=== PATIENT | female | born 1985 | race Hispanic/Latino ===

== ENCOUNTER 2017-04-30 13:05 | Emergency (ER) | payer SELFPAY ==
[2017-04-30 13:44] VITALS: BP 122/80
--- NOTE | 2017-04-30 17:17 | Emergency Department Report ---
Entered by ESE BUTLER, acting as scribe for CHRISTIN PIEDRA NP. ED ENT HPI - General Chief complaint: Dental/Oral Stated complaint: Toothache Time Seen by Provider: 04/30/17 16:30 Source: patient Mode of arrival: Ambulatory Limitations: No Limitations - History of Present Illness Initial comments: 31 y/o female presents with tooth pain secondary to tooth breaking and her filling falling out that occurred 3 days ago. Sx include diaphoresis during sleeping but pt denies swelling, fever, EDEN, chills, SOB, chest pain or EDEN. She notes having an appt with her dentist in [place] on 05/07/17 and that he is aware of the problem. No additional Sx MD complaint: tooth pain -: days(s) (3) Location: tooth # (4) Severity: mild Severity scale (0 -10): 4 Quality: aching Consistency: constant Improves with: none Worsens with: none Context- Dental: tooth knocked out (tooth number 4) Associated Symptoms: toothache. denies: fever, cough, gum swelling, pain with swallowing, sore throat, hearing loss, discharge from ear - Related Data Previous Rx's Medication Instructions Recorded Last Taken Type Acetaminophen/Codeine [Tylenol 1 tab PO Q6H PRN #12 tab 04/30/17 Unknown Rx /Codeine # 3 tab] Clindamycin [Clindamycin CAP] 300 mg PO Q8H #30 cap 04/30/17 Unknown Rx Ibuprofen [Motrin 800 MG tab] 800 mg PO Q8HR PRN #30 tablet 04/30/17 Unknown Rx Allergies Allergy/AdvReac Type Severity Reaction Status Date / Time chlordiazepoxide HCl Allergy Unknown Verified 04/30/17 13:40 [From Librium] Penicillins Allergy Shortness Verified 04/30/17 13:40 of Breath tramadol HCl [From Ultram] Allergy Unknown Verified 04/30/17 13:40 ED Dental HPI - General Chief complaint: Dental/Oral Stated complaint: Toothache Source: patient Mode of arrival: Ambulatory Limitations: No Limitations - Related Data Previous Rx's Medication Instructions Recorded Last Taken Type Acetaminophen/Codeine [Tylenol 1 tab PO Q6H PRN #12 tab 04/30/17 Unknown Rx /Codeine # 3 tab] Clindamycin [Clindamycin CAP] 300 mg PO Q8H #30 cap 04/30/17 Unknown Rx Ibuprofen [Motrin 800 MG tab] 800 mg PO Q8HR PRN #30 tablet 04/30/17 Unknown Rx Allergies Allergy/AdvReac Type Severity Reaction Status Date / Time chlordiazepoxide HCl Allergy Unknown Verified 04/30/17 13:40 [From Librium] Penicillins Allergy Shortness Verified 04/30/17 13:40 of Breath tramadol HCl [From Ultram] Allergy Unknown Verified 04/30/17 13:40 ED Review of Systems Comment: All other systems reviewed and negative Constitutional: denies: chills, fever ENT: dental pain (tooth number 4 cracked and filling came out). denies: throat pain ED Past Medical Hx - Past Medical History Previous Medical History?: Yes Hx Psychiatric Treatment: Yes (panic attacks, PTSD) Additional medical history: toothache and dental caries - Surgical History Past Surgical History?: Yes Additional Surgical History: hydronitis, wisdom tooth removed, pilonidal cyst removed - Social History Smoking Status: Current Every Day Smoker Substance Use Type: Prescribed - Medications Home Medications: Home Medications Medication Instructions Recorded Confirmed Last Taken Type Acetaminophen/Codeine [Tylenol 1 tab PO Q6H PRN #12 tab 04/30/17 Unknown Rx /Codeine # 3 tab] Clindamycin [Clindamycin CAP] 300 mg PO Q8H #30 cap 04/30/17 Unknown Rx Ibuprofen [Motrin 800 MG tab] 800 mg PO Q8HR PRN #30 tablet 04/30/17 Unknown Rx ED Physical Exam - General Limitations: No Limitations General appearance: alert, in no apparent distress - Head Head exam: Present: atraumatic, normocephalic - Eye Eye exam: Present: normal appearance, PERRL, EOMI Pupils: Present: normal accommodation - ENT ENT exam: Present: normal exam, normal orophraynx, mucous membranes moist, TM's normal bilaterally, normal external ear exam, other (tooth number 4 broke and filling came out, no pulp exposure, no gingival enlargement, no mucosal edema) - Neck Neck exam: Present: normal inspection, full ROM. Absent: tenderness, meningismus, lymphadenopathy, thyromegaly - Respiratory Respiratory exam: Present: normal lung sounds bilaterally. Absent: respiratory distress, wheezes, rales, rhonchi, stridor - Cardiovascular Cardiovascular Exam: Present: regular rate, normal rhythm, normal heart sounds. Absent: systolic murmur, diastolic murmur, rubs, gallop - GI/Abdominal GI/Abdominal exam: Present: soft, normal bowel sounds. Absent: distended, tenderness, guarding, rebound, rigid - Extremities Exam Extremities exam: Present: normal inspection, full ROM, normal capillary refill. Absent: tenderness, pedal edema, joint swelling, calf tenderness - Back Exam Back exam: Present: normal inspection, full ROM. Absent: tenderness, CVA tenderness (R), CVA tenderness (L), paraspinal tenderness, vertebral tenderness - Neurological Exam Neurological exam: Present: alert, oriented X3, CN II-XII intact, reflexes normal. Absent: motor sensory deficit - Psychiatric Psychiatric exam: Present: normal affect, normal mood - Skin Skin exam: Present: warm, dry, intact, normal color. Absent: rash ED Course Vital Signs 04/30/17 13:40 Temperature 98.9 F Pulse Rate 94 H Respiratory 20 Rate Blood Pressure 122/80 O2 Sat by Pulse 98 Oximetry ED Medical Decision Making - Medical Decision Making During the course of ED, all other systems are unremarkable except for documentation in HPI. Patient was sent home with prescriptions for Tylenol #3, Ibuprofen and Clindamycin, instructed to follow up with selective referral given at discharge. She verbalized understanding - Differential Diagnosis Toothache, Dental Caries, Dental Abscess ED Disposition Clinical Impression: Pain, dental Disposition: DISCHARGED TO HOME OR SELFCARE Is pt being admited?: No Does the pt Need Aspirin: No Condition: Stable Instructions: Toothache (ED) Additional Instructions: Take medication as directed. No drinking, driving or operating heavy machinery. Follow up with dentistry RENEE Prescriptions: Acetaminophen/Codeine [Tylenol /Codeine # 3 tab] 1 tab PO Q6H PRN #12 tab PRN Reason: Pain , Severe (7-10) Clindamycin [Clindamycin CAP] 300 mg PO Q8H #30 cap Ibuprofen [Motrin 800 MG tab] 800 mg PO Q8HR PRN #30 tablet PRN Reason: Pain, Moderate (4-6) Referrals: PRIMARY CARE,MD [Primary Care Provider] - 3-5 Days [facility] [Outside] - 3-5 Days [facility] [Outside] - 3-5 Days Forms: Work/School Release Form(ED) Time of Disposition: 17:11 This documentation as recorded by the LUKE vasquez RYAN,accurately reflects the service I personally performed and the decisions made by ,CHRISTIN PIEDRA NP.
== END 2017-04-30 17:41 | disposition home or self-care (01) ==
LOC: ED 13:05
DX: K08.89 Other specified disorders of teeth and supporting structures (principal); F41.0 Panic disorder [episodic paroxysmal anxiety]; F43.10 Post-traumatic stress disorder, unspecified; F17.200 Nicotine dependence, unspecified, uncomplicated; Z88.0 Allergy status to penicillin; Z88.8 Allergy status to other drugs, medicaments and biological substances
CPT/HCPCS: 99282

== ENCOUNTER 2019-02-19 12:10 | Emergency (ER) | payer SELFPAY ==
[2019-02-19 12:16] VITALS: BP 129/84
--- NOTE | 2019-02-19 12:31 | Emergency Department Report ---
ED ENT HPI - General Chief complaint: Dental/Oral Stated complaint: BROKEN TOOTH Time Seen by Provider: 02/19/19 12:15 Source: patient Mode of arrival: Ambulatory Limitations: No Limitations - History of Present Illness Initial comments: This is a 33-year-old female nontoxic, well in appearance with no signs of distress noted that presents with dental pain. Patient denies follow-up with dentist. Patient denies any facial swelling, fever, chills, headache, nausea, vomiting, chest pain or shortness of breathe. MD complaint: tooth pain -: week(s) Location: tooth # 1 - pain here Severity: mild Severity scale (0 -10): 8 Quality: aching Consistency: constant Improves with: none Worsens with: none Context- Dental: history of dental caries, poor dental care Associated Symptoms: gum swelling, toothache. denies: fever, cough, pain with swallowing, sore throat, tinnitus, hearing loss, discharge from ear, rhinorrhea - Related Data Previous Rx's Medication Instructions Recorded Last Taken Type Acetaminophen/Codeine [Tylenol 1 tab PO Q6H PRN #12 tab 04/30/17 Unknown Rx /Codeine # 3 tab] Clindamycin [Clindamycin CAP] 300 mg PO Q8H #30 cap 04/30/17 Unknown Rx Ibuprofen [Motrin 800 MG tab] 800 mg PO Q8HR PRN #30 tablet 04/30/17 Unknown Rx Acetaminophen/Codeine [Tylenol 1 tab PO Q6H PRN #12 tab 02/19/19 Unknown Rx /Codeine # 3 tab] Chlorhexidine Mouthwash [Peridex] 15 ml MM BID #1 bottle 02/19/19 Unknown Rx Clindamycin [Clindamycin CAP] 300 mg PO Q8H #21 cap 02/19/19 Unknown Rx Ibuprofen [Motrin] 600 mg PO Q8H PRN #20 tablet 02/19/19 Unknown Rx Allergies Allergy/AdvReac Type Severity Reaction Status Date / Time chlordiazepoxide HCl Allergy Unknown Verified 04/30/17 13:40 [From Librium] Penicillins Allergy Shortness Verified 04/30/17 13:40 of Breath tramadol HCl [From Ultram] Allergy Unknown Verified 04/30/17 13:40 ED Dental HPI - General Chief complaint: Dental/Oral Stated complaint: BROKEN TOOTH Time Seen by Provider: 02/19/19 12:15 Source: patient Mode of arrival: Ambulatory Limitations: No Limitations - Related Data Previous Rx's Medication Instructions Recorded Last Taken Type Acetaminophen/Codeine [Tylenol 1 tab PO Q6H PRN #12 tab 04/30/17 Unknown Rx /Codeine # 3 tab] Clindamycin [Clindamycin CAP] 300 mg PO Q8H #30 cap 04/30/17 Unknown Rx Ibuprofen [Motrin 800 MG tab] 800 mg PO Q8HR PRN #30 tablet 04/30/17 Unknown Rx Acetaminophen/Codeine [Tylenol 1 tab PO Q6H PRN #12 tab 02/19/19 Unknown Rx /Codeine # 3 tab] Chlorhexidine Mouthwash [Peridex] 15 ml MM BID #1 bottle 02/19/19 Unknown Rx Clindamycin [Clindamycin CAP] 300 mg PO Q8H #21 cap 02/19/19 Unknown Rx Ibuprofen [Motrin] 600 mg PO Q8H PRN #20 tablet 02/19/19 Unknown Rx Allergies Allergy/AdvReac Type Severity Reaction Status Date / Time chlordiazepoxide HCl Allergy Unknown Verified 04/30/17 13:40 [From Librium] Penicillins Allergy Shortness Verified 04/30/17 13:40 of Breath tramadol HCl [From Ultram] Allergy Unknown Verified 04/30/17 13:40 ED Review of Systems ROS: Stated complaint: BROKEN TOOTH Other details as noted in HPI Constitutional: denies: chills, fever Eyes: denies: eye pain, eye discharge, vision change ENT: dental pain. denies: ear pain, throat pain Respiratory: denies: cough, shortness of breath, wheezing Cardiovascular: denies: chest pain, palpitations Endocrine: no symptoms reported Gastrointestinal: denies: abdominal pain, nausea, diarrhea Genitourinary: denies: urgency, dysuria, discharge Musculoskeletal: denies: back pain, joint swelling, arthralgia Skin: denies: rash, lesions Neurological: denies: headache, weakness, paresthesias Psychiatric: denies: anxiety, depression Hematological/Lymphatic: denies: easy bleeding, easy bruising ED Past Medical Hx - Past Medical History Previous Medical History?: Yes Hx Psychiatric Treatment: Yes (panic attacks, PTSD) Additional medical history: toothache and dental caries - Surgical History Past Surgical History?: Yes Additional Surgical History: hydronitis, wisdom tooth removed, pilonidal cyst removed - Social History Smoking Status: Current Every Day Smoker Substance Use Type: None - Medications Home Medications: Home Medications Medication Instructions Recorded Confirmed Last Taken Type Acetaminophen/Codeine [Tylenol 1 tab PO Q6H PRN #12 tab 04/30/17 Unknown Rx /Codeine # 3 tab] Clindamycin [Clindamycin CAP] 300 mg PO Q8H #30 cap 04/30/17 Unknown Rx Ibuprofen [Motrin 800 MG tab] 800 mg PO Q8HR PRN #30 tablet 04/30/17 Unknown Rx Acetaminophen/Codeine [Tylenol 1 tab PO Q6H PRN #12 tab 02/19/19 Unknown Rx /Codeine # 3 tab] Chlorhexidine Mouthwash [Peridex] 15 ml MM BID #1 bottle 02/19/19 Unknown Rx Clindamycin [Clindamycin CAP] 300 mg PO Q8H #21 cap 02/19/19 Unknown Rx Ibuprofen [Motrin] 600 mg PO Q8H PRN #20 tablet 02/19/19 Unknown Rx ED Physical Exam - General Limitations: No Limitations General appearance: alert, in no apparent distress - Eye Eye exam: Present: normal appearance - Expanded ENT Exam Expanded Mouth exam: Present: normal external inspection, tongue normal. Absent: drooling, trismus, muffled voice Teeth exam: Present: dental caries, fractured tooth #, dental tenderness #, gingival enlargement, other (no facial swelling. no abscess.) Throat exam: Positive: normal inspection, other (uvula midline.). Negative: tonsillar erythema, tonsillomegaly, tonsillar exudate, R peritonsillar mass, L peritonsillar mass - Neck Neck exam: Present: normal inspection, full ROM. Absent: tenderness, meningismus, lymphadenopathy - Extremities Exam Extremities exam: Present: normal inspection, full ROM - Back Exam Back exam: Present: normal inspection, full ROM - Neurological Exam Neurological exam: Present: alert, oriented X3 - Psychiatric Psychiatric exam: Present: normal affect, normal mood ED Course Vital Signs 02/19/19 12:15 Temperature 97.9 F Pulse Rate 101 H Respiratory 18 Rate Blood Pressure 129/84 O2 Sat by Pulse 99 Oximetry - Reevaluation(s) Reevaluation #1: 02/19/19 12:32 Patient is speaking in full sentences with no signs of distress noted. ED Medical Decision Making - Medical Decision Making Patient was instructed to Follow-up with a dentist doctor in 3-5 days or if symptoms worsen and continue return to emergency room as soon as possible. At time of discharge, the patient does not seem toxic or ill in appearance. No acute signs of distress noted. Patient agrees to discharge treatment plan of care. No further questions noted by the patient. Critical care attestation.: If time is entered above; I have spent that time in minutes in the direct care of this critically ill patient, excluding procedure time. ED Disposition Clinical Impression: Dental caries, Gingivitis Disposition: TO HOME OR SELFCARE Is pt being admited?: No Does the pt Need Aspirin: No Condition: Stable Instructions: Acetaminophen/Codeine (By mouth), Dental Caries (ED), Gingivitis (ED) Additional Instructions: Follow-up with a dentist doctor in 3-5 days or if symptoms worsen and continue return to emergency room as soon as possible. Prescriptions: Clindamycin [Clindamycin CAP] 300 mg PO Q8H #21 cap Ibuprofen [Motrin] 600 mg PO Q8H PRN #20 tablet PRN Reason: Pain Chlorhexidine Mouthwash [Peridex] 15 ml MM BID #1 bottle Acetaminophen/Codeine [Tylenol /Codeine # 3 tab] 1 tab PO Q6H PRN #12 tab PRN Reason: Pain , Severe (7-10) [facility]errals: [facility] [Other] - 3-5 Days PRIMARY MD NEENA [Referring] - 3-5 Days BLANCHE BURDEN MD [Staff Physician] - 3-[address] [facility] [Outside] - 3-5 Days
== END 2019-02-19 12:54 | disposition home or self-care (01) ==
LOC: ED 12:10
DX: K02.9 Dental caries, unspecified (principal); K05.00 Acute gingivitis, plaque induced; F43.10 Post-traumatic stress disorder, unspecified; F17.200 Nicotine dependence, unspecified, uncomplicated; Z79.899 Other long term (current) drug therapy; Z88.8 Allergy status to other drugs, medicaments and biological substances; Z88.0 Allergy status to penicillin; Z88.6 Allergy status to analgesic agent
CPT/HCPCS: 99282

== ENCOUNTER 2019-04-23 15:19 | Emergency (ER) | payer MEDICAID ==
--- NOTE | 2019-04-23 15:27 | Emergency Department Report ---
Blank Doc - Documentation Documentation: This is a 33-year-old female that presents with right inner thigh abscess. This initial assessment/diagnostic orders/clinical plan/treatment(s) is/are subject to change based on patient's health status, clinical progression and re- assessment by fellow clinical providers in the ED. Further treatment and workup at subsequent clinical providers discretion. Patient/guardians urged not to elope from the ED as their condition may be serious if not clinically assessed and managed. Initial orders include: 1- Patient sent to [facility] for further evaluation and treatment
[2019-04-23 15:28] VITALS: BP 127/77
[2019-04-23] MEDS ORDERED: NORCO 7.5/325 PO ONE (16:33)
[2019-04-23] MEDS ORDERED: CLEOCIN IM ONE (16:33)
--- NOTE | 2019-04-23 16:33 | Emergency Department Report ---
Abscess Boil HPI - HPI Chief Complaint: Skin/Abscess/Foreign Body Stated Complaint: ABSCESS ON THIGH Time Seen by Provider: 04/23/19 15:26 Duration: >1 Week Location: Other Severity: Mild History: Yes Pain, Yes Purulent Drainage, Yes Previous History, No Fever, No Numbness, No Foreign Body, No Insect Bite HPI: PT HAS SMALL DRAINING OF ABSCESS OF LABIA MAJORA. SHE HAS BEEN ON ANTIBIOTICS NUMEROUS TIMES FOR THE SAME AND SHE DOES NOT FOLLOW UP WITH ANYONE. SHE STATES SHE HAS AN APPOINTMENT NEXT MONTH. I EDUCATED HER THAT THE RECURRING USE OF THESE MEDS IS NOT WITHOUT RISK. Home Medications: Previous Rx's Medication Instructions Recorded Last Taken Type Clindamycin [Clindamycin CAP] 300 mg PO Q8H #30 cap 04/23/19 Unknown Rx Fluconazole [Diflucan TAB] 100 mg PO QDAY #2 tablet 04/23/19 Unknown Rx Naproxen [Naprosyn] 500 mg PO BID PRN #20 tablet 04/23/19 Unknown Rx Allergies/Adverse Reactions: Allergies Allergy/AdvReac Type Severity Reaction Status Date / Time chlordiazepoxide HCl Allergy Unknown Verified 04/30/17 13:40 [From Librium] Penicillins Allergy Shortness Verified 04/30/17 13:40 of Breath tramadol HCl [From Ultram] Allergy Unknown Verified 04/30/17 13:40 ED Review of Systems ROS: Stated complaint: ABSCESS ON THIGH Other details as noted in HPI Comment: All other systems reviewed and negative ED Past Medical Hx - Past Medical History Previous Medical History?: Yes Hx Psychiatric Treatment: Yes (panic attacks, PTSD) Additional medical history: toothache and dental caries - Surgical History Past Surgical History?: Yes Additional Surgical History: hydronitis, wisdom tooth removed, pilonidal cyst removed - Family History Family history: no significant - Social History Smoking Status: Current Every Day Smoker - Medications Home Medications: Home Medications Medication Instructions Recorded Confirmed Last Taken Type Clindamycin [Clindamycin CAP] 300 mg PO Q8H #30 cap 04/23/19 Unknown Rx Fluconazole [Diflucan TAB] 100 mg PO QDAY #2 tablet 04/23/19 Unknown Rx Naproxen [Naprosyn] 500 mg PO BID PRN #20 tablet 04/23/19 Unknown Rx ED Abscess Boil Physical Exam - Exam General: Vital signs noted. No distress. Alert and acting appropriately. Size: 2 cm Exam: Yes Tenderness, Yes Normal Neurologic Exam, Yes Normal Circulation, No Fluctuance, No Surrounding Cellulites/Erythema, No Lymphangitis, No Crepitation, No Heart Murmur Exam: PT HAS SMALL DRAINING OF ABSCESS OF LABIA MAJORA. SHE HAS BEEN ON ANTIBIOTICS NUMEROUS TIMES FOR THE SAME AND SHE DOES NOT FOLLOW UP WITH ANYONE. SHE STATES SHE HAS AN APPOINTMENT NEXT MONTH. I EDUCATED HER THAT THE RECURRING USE OF THESE MEDS IS NOT WITHOUT RISK. THE AREA IS OPEN AND DRAINING. NO NEED FOR I/D. THIS IS A CHRONIC ISSUE. ED Course Vital Signs 04/23/19 15:26 Temperature 98.5 F Pulse Rate 102 H Respiratory 16 Rate Blood Pressure 127/77 O2 Sat by Pulse 94 Oximetry Critical care attestation.: If time is entered above; I have spent that time in minutes in the direct care of this critically ill patient, excluding procedure time. ED Medical Decision Making - Differential Diagnosis A/C ABSCESS WITH MED NON ADHERENCE ED Disposition Clinical Impression: Abscess Disposition: - TO HOME OR SELFCARE Is pt being admited?: No Does the pt Need Aspirin: No Condition: Stable Instructions: Abscess (ED) Additional Instructions: DIET TOLERATED MEDS ORDERED TODAY IN ER FOLLOW INSTRUCTIONS ON THE BOTTLE FOLLOW UP PCP WITHIN 48 HOURS TO ENSURE YOU ARE GETTING BETTER ACTIVITY TOLERATED MOTRIN OR TYLENOL FOR PAIN OR FEVER RETURN TO THE ER FOR WORSENING SYMPTOMS NOT RELIEVED BY YOUR MEDICATIONS. EPSOM SALT SOAKS THREE TIMES PER DAY FOR 20 MIN MEDS ORDERED TODAY FOLLOW UP WITH MD DURAN YOU BEING ON THESE MEDS ALL THE TIME IS NOT WITHOUT RISK Prescriptions: Clindamycin [Clindamycin CAP] 300 mg PO Q8H #30 cap Fluconazole [Diflucan TAB] 100 mg PO QDAY #2 tablet Naproxen [Naprosyn] 500 mg PO BID PRN #20 tablet PRN Reason: Pain Referrals: [facility] [Outside] - 3-5 Days Time of Disposition: 16:41
== END 2019-04-23 17:46 | disposition home or self-care (01) ==
LOC: ED 15:19
DX: N76.4 Abscess of vulva (principal); F17.200 Nicotine dependence, unspecified, uncomplicated
CPT/HCPCS: 96372; 99282

== ENCOUNTER 2019-05-13 11:34 | Emergency (ER) | payer MEDICAID ==
[2019-05-13 12:00] VITALS: BP 119/80
--- NOTE | 2019-05-13 12:01 | Event Note ---
ED Screening Note Date of service: 05/13/19 Time: 11:59 ED Screening Note: 33 y/o female c/o abscess on groin. No fever. This initial assessment/diagnostic orders/clinical plan/treatment(s) is/are subject to change based on patients health status, clinical progression and re- assessment by fellow clinical providers in the ED. Further treatment and workup at subsequent clinical providers discretion. Patient/guardian urged not to elope from the ED as their condition may be serious if not clinically assessed and managed. Initial orders include:
--- NOTE | 2019-05-13 12:55 | Emergency Department Report ---
ED General Adult HPI - General Chief complaint: Skin/Abscess/Foreign Body Stated complaint: ABSCESS Time Seen by Provider: 05/13/19 12:17 Source: patient Mode of arrival: Ambulatory Limitations: No Limitations - History of Present Illness Initial comments: Patient presents to the emergency department with a chief complaint of hidradenitis suppurativa. Patient states she's had this issue before and is here for a surgical referral. -: Gradual Location: genitals Radiation: non-radiation Severity scale (0 -10): 5 Quality: burning Consistency: constant Improves with: none Worsens with: none Associated Symptoms: denies other symptoms Treatments Prior to Arrival: none - Related Data Previous Rx's Medication Instructions Recorded Last Taken Type Clindamycin [Clindamycin CAP] 300 mg PO Q8H #30 cap 04/23/19 Unknown Rx Fluconazole [Diflucan TAB] 100 mg PO QDAY #2 tablet 04/23/19 Unknown Rx Naproxen [Naprosyn] 500 mg PO BID PRN #20 tablet 04/23/19 Unknown Rx Fluconazole [Diflucan TAB] 100 mg PO QDAY #1 tablet 05/13/19 Unknown Rx HYDROcodone/APAP 5-325 [[place] 1 each PO Q6HR PRN #12 tablet 05/13/19 Unknown Rx 5/325] Sulfamethoxazole/Trimethoprim 2 each PO BID #28 tablet 05/13/19 Unknown Rx [Bactrim DS TAB] Allergies Allergy/AdvReac Type Severity Reaction Status Date / Time chlordiazepoxide HCl Allergy Unknown Verified 04/30/17 13:40 [From Librium] Penicillins Allergy Shortness Verified 04/30/17 13:40 of Breath tramadol HCl [From Ultram] Allergy Unknown Verified 04/30/17 13:40 ED Review of Systems ROS: Stated complaint: ABSCESS Other details as noted in HPI Comment: All other systems reviewed and negative Constitutional: denies: chills, fever Eyes: denies: eye pain, eye discharge, vision change ENT: denies: ear pain, throat pain Respiratory: denies: cough, shortness of breath, wheezing Cardiovascular: denies: chest pain, palpitations Endocrine: no symptoms reported Gastrointestinal: denies: abdominal pain, nausea, diarrhea Genitourinary: denies: urgency, dysuria, discharge Musculoskeletal: denies: back pain, joint swelling, arthralgia Skin: denies: rash, lesions Neurological: denies: headache, weakness, paresthesias Psychiatric: denies: anxiety, depression Hematological/Lymphatic: denies: easy bleeding, easy bruising ED Past Medical Hx - Past Medical History Previous Medical History?: Yes Hx Psychiatric Treatment: Yes (panic attacks, PTSD) Additional medical history: toothache and dental caries - Surgical History Past Surgical History?: Yes Additional Surgical History: hydronitis, wisdom tooth removed, pilonidal cyst removed - Social History Smoking Status: Current Every Day Smoker Substance Use Type: None - Medications Home Medications: Home Medications Medication Instructions Recorded Confirmed Last Taken Type Clindamycin [Clindamycin CAP] 300 mg PO Q8H #30 cap 04/23/19 Unknown Rx Fluconazole [Diflucan TAB] 100 mg PO QDAY #2 tablet 04/23/19 Unknown Rx Naproxen [Naprosyn] 500 mg PO BID PRN #20 tablet 04/23/19 Unknown Rx Fluconazole [Diflucan TAB] 100 mg PO QDAY #1 tablet 05/13/19 Unknown Rx HYDROcodone/APAP 5-325 [[place] 1 each PO Q6HR PRN #12 tablet 05/13/19 Unknown Rx 5/325] Sulfamethoxazole/Trimethoprim 2 each PO BID #28 tablet 05/13/19 Unknown Rx [Bactrim DS TAB] ED Physical Exam - General Limitations: No Limitations General appearance: alert, in no apparent distress - Head Head exam: Present: atraumatic, normocephalic - Eye Eye exam: Present: normal appearance, PERRL, EOMI - ENT ENT exam: Present: mucous membranes moist - Neck Neck exam: Present: normal inspection - Respiratory Respiratory exam: Present: normal lung sounds bilaterally. Absent: respiratory distress - Cardiovascular Cardiovascular Exam: Present: regular rate, normal rhythm. Absent: systolic murmur, diastolic murmur, rubs, gallop - GI/Abdominal GI/Abdominal exam: Present: soft, normal bowel sounds. Absent: distended, tenderness - External exam: Present: other (chaperoned by Nurse Rebel Yañez; hidradenitis suppurativa of the right groin) - Extremities Exam Extremities exam: Present: normal inspection - Back Exam Back exam: Present: normal inspection - Neurological Exam Neurological exam: Present: alert, oriented X3 - Psychiatric Psychiatric exam: Present: normal affect, normal mood - Skin Skin exam: Present: warm, dry, intact, normal color. Absent: rash ED Course Vital Signs 05/13/19 11:58 Temperature 98.1 F Pulse Rate 109 H Respiratory 15 Rate Blood Pressure 119/80 [Left] O2 Sat by Pulse 98 Oximetry ED Medical Decision Making - Medical Decision Making Plan of care discussed with patient Critical care attestation.: If time is entered above; I have spent that time in minutes in the direct care of this critically ill patient, excluding procedure time. ED Disposition Clinical Impression: Hidradenitis Disposition: - TO HOME OR SELFCARE Is pt being admited?: No Does the pt Need Aspirin: No Condition: Stable Instructions: Abscess (ED) Additional Instructions: return if worse Prescriptions: Sulfamethoxazole/Trimethoprim [Bactrim DS TAB] 2 each PO BID #28 tablet Fluconazole [Diflucan TAB] 100 mg PO QDAY #1 tablet HYDROcodone/APAP 5-325 [[place] 5/325] 1 each PO Q6HR PRN #12 tablet PRN Reason: Pain Referrals: CORBIN PAINTING MD [Primary Care Provider] - 3-5 Days JUSTIN ARGUETA DO [Staff Physician] - 3-5 Days Time of Disposition: 12:59
== END 2019-05-13 13:13 | disposition home or self-care (01) ==
LOC: ED 11:34
DX: L73.2 Hidradenitis suppurativa (principal); F41.0 Panic disorder [episodic paroxysmal anxiety]; F17.200 Nicotine dependence, unspecified, uncomplicated; Z79.899 Other long term (current) drug therapy; Z88.0 Allergy status to penicillin; Z88.8 Allergy status to other drugs, medicaments and biological substances
CPT/HCPCS: 99282

== ENCOUNTER 2019-06-03 14:36 | Emergency (ER) | payer MEDICAID ==
--- NOTE | 2019-06-03 15:04 | Emergency Department Report ---
Blank Doc - Documentation Documentation: 33 y o female presents with abscess to the vaginal area no other cc
[2019-06-03 15:05] VITALS: BP 114/78
--- NOTE | 2019-06-03 17:35 | Emergency Department Report ---
- General Chief complaint: Skin/Abscess/Foreign Body Stated complaint: ABCESS Time Seen by Provider: 06/03/19 15:03 Source: patient Mode of arrival: Ambulatory Limitations: No Limitations - History of Present Illness Initial comments: 33-year-old female presents to the emergency room complaining of a Sister vaginal area. Patient reports she has a history of hidradenitis supportive. Patient reports that the boil was getting bigger last few day while she was at work today she was planning to come into the emergency room when(. Patient reports that he has been draining. Patient denies any fever chills no nausea vomiting. Patient reports that she is waiting for surgery and she give her call back as no one in the area takes her insurance. - Related Data Previous Rx's Medication Instructions Recorded Last Taken Type Clindamycin [Clindamycin CAP] 300 mg PO Q8H #30 cap 04/23/19 Unknown Rx Fluconazole [Diflucan TAB] 100 mg PO QDAY #2 tablet 04/23/19 Unknown Rx Naproxen [Naprosyn] 500 mg PO BID PRN #20 tablet 04/23/19 Unknown Rx HYDROcodone/APAP 5-325 [[place] 1 each PO Q6HR PRN #12 tablet 05/13/19 Unknown Rx 5/325] Sulfamethoxazole/Trimethoprim 2 each PO BID #28 tablet 05/13/19 Unknown Rx [Bactrim DS TAB] Clindamycin [Clindamycin CAP] 300 mg PO Q8H #30 cap 06/03/19 Unknown Rx Fluconazole [Diflucan TAB] 100 mg PO QDAY #1 tablet 06/03/19 Unknown Rx HYDROcodone/APAP 5-325 [[place] 1 each PO Q6HR PRN #12 tablet 06/03/19 Unknown Rx 5/325] Allergies Allergy/AdvReac Type Severity Reaction Status Date / Time chlordiazepoxide HCl Allergy Unknown Verified 04/30/17 13:40 [From Librium] codeine Allergy Unknown Verified 06/03/19 14:47 Penicillins Allergy Shortness Verified 04/30/17 13:40 of Breath tramadol HCl [From Ultram] Allergy Unknown Verified 04/30/17 13:40 Abscess Boil HPI - HPI Chief Complaint: Skin/Abscess/Foreign Body Stated Complaint: ABCESS Time Seen by Provider: 06/03/19 15:03 Home Medications: Previous Rx's Medication Instructions Recorded Last Taken Type Clindamycin [Clindamycin CAP] 300 mg PO Q8H #30 cap 04/23/19 Unknown Rx Fluconazole [Diflucan TAB] 100 mg PO QDAY #2 tablet 04/23/19 Unknown Rx Naproxen [Naprosyn] 500 mg PO BID PRN #20 tablet 04/23/19 Unknown Rx HYDROcodone/APAP 5-325 [[place] 1 each PO Q6HR PRN #12 tablet 05/13/19 Unknown Rx 5/325] Sulfamethoxazole/Trimethoprim 2 each PO BID #28 tablet 05/13/19 Unknown Rx [Bactrim DS TAB] Clindamycin [Clindamycin CAP] 300 mg PO Q8H #30 cap 06/03/19 Unknown Rx Fluconazole [Diflucan TAB] 100 mg PO QDAY #1 tablet 06/03/19 Unknown Rx HYDROcodone/APAP 5-325 [[place] 1 each PO Q6HR PRN #12 tablet 06/03/19 Unknown Rx 5/325] Allergies/Adverse Reactions: Allergies Allergy/AdvReac Type Severity Reaction Status Date / Time chlordiazepoxide HCl Allergy Unknown Verified 04/30/17 13:40 [From Librium] codeine Allergy Unknown Verified 06/03/19 14:47 Penicillins Allergy Shortness Verified 04/30/17 13:40 of Breath tramadol HCl [From Ultram] Allergy Unknown Verified 04/30/17 13:40 ED Review of Systems ROS: Stated complaint: ABCESS Other details as noted in HPI ED Past Medical Hx - Past Medical History Previous Medical History?: Yes Hx Psychiatric Treatment: Yes (panic attacks, PTSD) Additional medical history: hydronitis - Surgical History Past Surgical History?: Yes Additional Surgical History: hydronitis, wisdom tooth removed, pilonidal cyst removed - Social History Smoking Status: Current Every Day Smoker Substance Use Type: None - Medications Home Medications: Home Medications Medication Instructions Recorded Confirmed Last Taken Type Clindamycin [Clindamycin CAP] 300 mg PO Q8H #30 cap 04/23/19 Unknown Rx Fluconazole [Diflucan TAB] 100 mg PO QDAY #2 tablet 04/23/19 Unknown Rx Naproxen [Naprosyn] 500 mg PO BID PRN #20 tablet 04/23/19 Unknown Rx HYDROcodone/APAP 5-325 [[place] 1 each PO Q6HR PRN #12 tablet 05/13/19 Unknown Rx 5/325] Sulfamethoxazole/Trimethoprim 2 each PO BID #28 tablet 05/13/19 Unknown Rx [Bactrim DS TAB] Clindamycin [Clindamycin CAP] 300 mg PO Q8H #30 cap 06/03/19 Unknown Rx Fluconazole [Diflucan TAB] 100 mg PO QDAY #1 tablet 06/03/19 Unknown Rx HYDROcodone/APAP 5-325 [[place] 1 each PO Q6HR PRN #12 tablet 06/03/19 Unknown Rx 5/325] ED Physical Exam - General Limitations: No Limitations General appearance: alert, in no apparent distress - Head Head exam: Present: atraumatic, normocephalic - Eye Eye exam: Present: normal appearance - ENT ENT exam: Present: mucous membranes moist - Cardiovascular Cardiovascular Exam: Present: regular rate - External exam: Present: erythema, other (tenderness to touch of right labia majora). Absent: swelling - Neurological Exam Neurological exam: Present: alert, oriented X3, normal gait - Psychiatric Psychiatric exam: Present: normal affect, normal mood - Skin Skin exam: Present: warm, dry, intact, normal color. Absent: rash ED Course Vital Signs 06/03/19 15:03 Temperature 98.5 F Pulse Rate 101 H Respiratory 18 Rate Blood Pressure 114/78 O2 Sat by Pulse 97 Oximetry ED Medical Decision Making - Medical Decision Making 33-year-old female comes in for bilateral to the right labia majora. Patient was placed on clindamycin prescription for [place] 5/325 and Diflucan. Patient was referred back to her surgeon. Critical care attestation.: If time is entered above; I have spent that time in minutes in the direct care of this critically ill patient, excluding procedure time. ED Disposition Clinical Impression: Boil of groin Disposition: DC-01 TO HOME OR SELFCARE Is pt being admited?: No Does the pt Need Aspirin: No Condition: Stable Instructions: Furunculosis and Carbunculosis (ED) Additional Instructions: Complete antibiotics as prescribed. Take pain medication as needed. Follow up with her surgeon. Prescriptions: Clindamycin [Clindamycin CAP] 300 mg PO Q8H #30 cap Fluconazole [Diflucan TAB] 100 mg PO QDAY #1 tablet HYDROcodone/APAP 5-325 [[place] 5/325] 1 each PO Q6HR PRN #12 tablet PRN Reason: Pain Referrals: [facility], MD [Primary Care Provider] - 3-5 Days Forms: Work/School Release Form(ED)
== END 2019-06-03 17:50 | disposition home or self-care (01) ==
LOC: ED 14:36
DX: L02.224 Furuncle of groin (principal); F41.0 Panic disorder [episodic paroxysmal anxiety]; F17.200 Nicotine dependence, unspecified, uncomplicated; Z79.899 Other long term (current) drug therapy; Z88.6 Allergy status to analgesic agent; Z88.0 Allergy status to penicillin; Z88.8 Allergy status to other drugs, medicaments and biological substances
CPT/HCPCS: 99282

== ENCOUNTER 2019-07-04 15:10 | Emergency (ER) | payer MEDICAID ==
--- NOTE | 2019-07-04 15:33 | Event Note ---
ED Screening Note Date of service: 07/04/19 Time: 15:24 ED Screening Note: This is a 33 y.o. F. that presents to the ER with abscess to right groin 8 months on and off. PMH of hidradentitis suppurative This initial assessment/diagnostic orders/clinical plan/treatment(s) is/are subject to change based on patients health status, clinical progression and re- assessment by fellow clinical providers in the ED. Further treatment and workup at subsequent clinical providers discretion. Patient/guardian urged not to elope from the ED as their condition may be serious if not clinically assessed and managed. Initial orders include:
[2019-07-04 15:41] VITALS: BP 157/91
[2019-07-04] MEDS ORDERED: NORCO 5/325 PO STA (17:45)
--- NOTE | 2019-07-04 17:50 | Emergency Department Report ---
ED General Adult HPI - General Chief complaint: Skin/Abscess/Foreign Body Stated complaint: ABSCESS GROIN AREA Time Seen by Provider: 07/04/19 15:24 Source: patient Mode of arrival: Ambulatory Limitations: No Limitations - History of Present Illness Initial comments: 33-year-old obese female with past medical history of chronic recurrent hidradenitis to her area that required surgical fixation and now have an issue to her groin. She is due to have surgical fixation with a surgeon at hospital. however, has is having this flareup and was advised to come to the emergency department for anabiotic's and pain control. she states that this is her usual flareup reports no fever, chills, sweats. no vaginal bleeding or trauma. no chest pain or palpitations. no dysuria, no hematuria. -: Gradual Radiation: non-radiation Quality: dull Consistency: constant Improves with: none Worsens with: none Associated Symptoms: denies: chest pain, cough, diaphoresis, loss of appetite, malaise, nausea/vomiting, rash, shortness of breath, syncope, weakness Treatments Prior to Arrival: none - Related Data Previous Rx's Medication Instructions Recorded Last Taken Type Clindamycin [Clindamycin CAP] 300 mg PO Q8H #30 cap 04/23/19 Unknown Rx Fluconazole [Diflucan TAB] 100 mg PO QDAY #2 tablet 04/23/19 Unknown Rx Naproxen [Naprosyn] 500 mg PO BID PRN #20 tablet 04/23/19 Unknown Rx HYDROcodone/APAP 5-325 [[place] 1 each PO Q6HR PRN #12 tablet 05/13/19 Unknown Rx 5/325] Sulfamethoxazole/Trimethoprim 2 each PO BID #28 tablet 05/13/19 Unknown Rx [Bactrim DS TAB] Clindamycin [Clindamycin CAP] 300 mg PO Q8H #30 cap 06/03/19 Unknown Rx Fluconazole [Diflucan TAB] 100 mg PO QDAY #1 tablet 06/03/19 Unknown Rx HYDROcodone/APAP 5-325 [[place] 1 each PO Q6HR PRN #12 tablet 06/03/19 Unknown Rx 5/325] Chlorhexidine Gluconate [Hibiclens] 10 ml TP BID #240 liquid 07/04/19 Unknown Rx Fluconazole [Diflucan] 150 mg PO ONCE #2 tablet 07/04/19 Unknown Rx Ketorolac [Toradol] 10 mg PO Q6H PRN #15 tablet 07/04/19 Unknown Rx Sulfamethoxazole/Trimethoprim 1 each PO BID #20 tablet 07/04/19 Unknown Rx [Bactrim Ds] Allergies Allergy/AdvReac Type Severity Reaction Status Date / Time chlordiazepoxide HCl Allergy Unknown Verified 04/30/17 13:40 [From Librium] codeine Allergy Unknown Verified 06/03/19 14:47 Penicillins Allergy Shortness Verified 04/30/17 13:40 of Breath tramadol HCl [From Ultram] Allergy Unknown Verified 04/30/17 13:40 ED Review of Systems ROS: Stated complaint: ABSCESS GROIN AREA Other details as noted in HPI Comment: All other systems reviewed and negative ED Past Medical Hx - Past Medical History Previous Medical History?: Yes Hx Psychiatric Treatment: Yes (panic attacks, PTSD) Additional medical history: hydronitis - Surgical History Past Surgical History?: Yes Additional Surgical History: hydronitis, wisdom tooth removed, pilonidal cyst removed - Social History Smoking Status: Current Every Day Smoker Substance Use Type: None - Medications Home Medications: Home Medications Medication Instructions Recorded Confirmed Last Taken Type Clindamycin [Clindamycin CAP] 300 mg PO Q8H #30 cap 04/23/19 Unknown Rx Fluconazole [Diflucan TAB] 100 mg PO QDAY #2 tablet 04/23/19 Unknown Rx Naproxen [Naprosyn] 500 mg PO BID PRN #20 tablet 04/23/19 Unknown Rx HYDROcodone/APAP 5-325 [[place] 1 each PO Q6HR PRN #12 tablet 05/13/19 Unknown Rx 5/325] Sulfamethoxazole/Trimethoprim 2 each PO BID #28 tablet 05/13/19 Unknown Rx [Bactrim DS TAB] Clindamycin [Clindamycin CAP] 300 mg PO Q8H #30 cap 06/03/19 Unknown Rx Fluconazole [Diflucan TAB] 100 mg PO QDAY #1 tablet 06/03/19 Unknown Rx HYDROcodone/APAP 5-325 [[place] 1 each PO Q6HR PRN #12 tablet 06/03/19 Unknown Rx 5/325] Chlorhexidine Gluconate [Hibiclens] 10 ml TP BID #240 liquid 07/04/19 Unknown Rx Fluconazole [Diflucan] 150 mg PO ONCE #2 tablet 07/04/19 Unknown Rx Ketorolac [Toradol] 10 mg PO Q6H PRN #15 tablet 07/04/19 Unknown Rx Sulfamethoxazole/Trimethoprim 1 each PO BID #20 tablet 07/04/19 Unknown Rx [Bactrim Ds] ED Physical Exam - General Limitations: No Limitations ED Course Vital Signs 07/04/19 15:23 Temperature 98.5 F Pulse Rate 107 H Respiratory 18 Rate Blood Pressure 157/91 O2 Sat by Pulse 100 Oximetry Critical care attestation.: If time is entered above; I have spent that time in minutes in the direct care of this critically ill patient, excluding procedure time. ED Disposition Disposition: DC- TO HOME OR SELFCARE Condition: Stable Instructions: Chronic Wound Care (ED) Additional Instructions: Please keep your appointment with her surgeon for treatment of her hidradenitis Prescriptions: Sulfamethoxazole/Trimethoprim [Bactrim Ds] 1 each PO BID #20 tablet Fluconazole [Diflucan] 150 mg PO ONCE #2 tablet Chlorhexidine Gluconate [Hibiclens] 10 ml TP BID #240 liquid Ketorolac [Toradol] 10 mg PO Q6H PRN #15 tablet PRN Reason: Pain Referrals: АНДРЕЙ MEJIA MD [Staff Physician] - 3-5 Days
== END 2019-07-04 18:14 | disposition home or self-care (01) ==
LOC: ED 15:10
DX: L02.214 Cutaneous abscess of groin (principal); F41.0 Panic disorder [episodic paroxysmal anxiety]; F43.10 Post-traumatic stress disorder, unspecified; F17.200 Nicotine dependence, unspecified, uncomplicated; Z79.899 Other long term (current) drug therapy; Z88.5 Allergy status to narcotic agent; Z88.0 Allergy status to penicillin; Z88.8 Allergy status to other drugs, medicaments and biological substances
CPT/HCPCS: 99282

== ENCOUNTER 2019-08-27 12:13 | Emergency (ER) | payer MEDICAID ==
[2019-08-27 12:54] VITALS: BP 118/86
--- NOTE | 2019-08-27 12:57 | Event Note ---
ED Screening Note Date of service: 08/27/19 Time: 12:55 ED Screening Note: 34 y o f presents with 10/10 pain tpo left dental due to broken tooth states dentist appt tomorrow but she is in too much pain today This initial assessment/diagnostic orders/clinical plan/treatment(s) is/are subject to change based on patients health status, clinical progression and re- assessment by fellow clinical providers in the ED. Further treatment and workup at subsequent clinical providers discretion. Patient/guardian urged not to elope from the ED as their condition may be serious if not clinically assessed and managed. Initial orders include: nme- discussed with pt pain med acc eval
== END 2019-08-27 13:30 | disposition left against medical advice (07) ==
LOC: ED 12:13
DX: S02.5XXA Fracture of tooth (traumatic), initial encounter for closed fracture (principal); X58.XXXA Exposure to other specified factors, initial encounter; Y93.89 Activity, other specified; Y92.89 Other specified places as the place of occurrence of the external cause; Y99.8 Other external cause status; Z53.21 Procedure and treatment not carried out due to patient leaving prior to being seen by health care provider

== ENCOUNTER 2020-01-24 23:32 | Emergency (ER) | payer MEDICAID ==
[2020-01-24 23:55] VITALS: BP 112/80
--- NOTE | 2020-01-25 01:27 | Emergency Department Report ---
- General Chief complaint: Skin/Abscess/Foreign Body Stated complaint: CYST Time Seen by Provider: 01/25/20 01:13 Source: patient Mode of arrival: Ambulatory Limitations: No Limitations - History of Present Illness Initial comments: Patient is a 34-year-old female presents emergency room with complaints of a small area of edema and pain to the gluteal cleft that began approximately week ago. She states that she sits frequently while she is working and works 12-hour shifts. She states that she has had pilonidal cyst before and had them removed as an outpatient approximately 3 times. She denies any fever, nausea, vomiting, diarrhea, drainage. She has a past medical history of vaginitis and pilonidal cyst. She has an allergy to Librium, codeine, penicillin, tramadol. she states she has an appointment with her surgeon on January 28 to be evaluated. - Related Data Previous Rx's Medication Instructions Recorded Last Taken Type Clindamycin [Clindamycin CAP] 300 mg PO Q8H #30 cap 04/23/19 Unknown Rx Fluconazole [Diflucan TAB] 100 mg PO QDAY #2 tablet 04/23/19 Unknown Rx Naproxen [Naprosyn] 500 mg PO BID PRN #20 tablet 04/23/19 Unknown Rx HYDROcodone/APAP 5-325 [Kincaid 1 each PO Q6HR PRN #12 tablet 05/13/19 Unknown Rx 5/325] Sulfamethoxazole/Trimethoprim 2 each PO BID #28 tablet 05/13/19 Unknown Rx [Bactrim DS TAB] Clindamycin [Clindamycin CAP] 300 mg PO Q8H #30 cap 06/03/19 Unknown Rx Fluconazole [Diflucan TAB] 100 mg PO QDAY #1 tablet 06/03/19 Unknown Rx HYDROcodone/APAP 5-325 [Kincaid 1 each PO Q6HR PRN #12 tablet 06/03/19 Unknown Rx 5/325] Chlorhexidine Gluconate [Hibiclens] 10 ml TP BID #240 liquid 07/04/19 Unknown Rx Fluconazole [Diflucan] 150 mg PO ONCE #2 tablet 07/04/19 Unknown Rx Ketorolac [Toradol] 10 mg PO Q6H PRN #15 tablet 07/04/19 Unknown Rx Sulfamethoxazole/Trimethoprim 1 each PO BID #20 tablet 07/04/19 Unknown Rx [Bactrim Ds] Ketorolac [Toradol] 10 mg PO Q8HR PRN #10 tablet 01/25/20 Unknown Rx Sulfamethoxazole/Trimethoprim 2 each PO BID 10 Days #40 tablet 01/25/20 Unknown Rx [Bactrim DS TAB] Allergies Allergy/AdvReac Type Severity Reaction Status Date / Time chlordiazepoxide HCl Allergy Unknown Verified 04/30/17 13:40 [From Librium] codeine Allergy Unknown Verified 06/03/19 14:47 Penicillins Allergy Shortness Verified 04/30/17 13:40 of Breath tramadol HCl [From Ultram] Allergy Unknown Verified 04/30/17 13:40 Abscess Boil HPI - HPI Chief Complaint: Skin/Abscess/Foreign Body Stated Complaint: CYST Time Seen by Provider: 01/25/20 01:13 Home Medications: Previous Rx's Medication Instructions Recorded Last Taken Type Clindamycin [Clindamycin CAP] 300 mg PO Q8H #30 cap 04/23/19 Unknown Rx Fluconazole [Diflucan TAB] 100 mg PO QDAY #2 tablet 04/23/19 Unknown Rx Naproxen [Naprosyn] 500 mg PO BID PRN #20 tablet 04/23/19 Unknown Rx HYDROcodone/APAP 5-325 [Kincaid 1 each PO Q6HR PRN #12 tablet 05/13/19 Unknown Rx 5/325] Sulfamethoxazole/Trimethoprim 2 each PO BID #28 tablet 05/13/19 Unknown Rx [Bactrim DS TAB] Clindamycin [Clindamycin CAP] 300 mg PO Q8H #30 cap 06/03/19 Unknown Rx Fluconazole [Diflucan TAB] 100 mg PO QDAY #1 tablet 06/03/19 Unknown Rx HYDROcodone/APAP 5-325 [Kincaid 1 each PO Q6HR PRN #12 tablet 06/03/19 Unknown Rx 5/325] Chlorhexidine Gluconate [Hibiclens] 10 ml TP BID #240 liquid 07/04/19 Unknown Rx Fluconazole [Diflucan] 150 mg PO ONCE #2 tablet 07/04/19 Unknown Rx Ketorolac [Toradol] 10 mg PO Q6H PRN #15 tablet 07/04/19 Unknown Rx Sulfamethoxazole/Trimethoprim 1 each PO BID #20 tablet 07/04/19 Unknown Rx [Bactrim Ds] Ketorolac [Toradol] 10 mg PO Q8HR PRN #10 tablet 01/25/20 Unknown Rx Sulfamethoxazole/Trimethoprim 2 each PO BID 10 Days #40 tablet 01/25/20 Unknown Rx [Bactrim DS TAB] Allergies/Adverse Reactions: Allergies Allergy/AdvReac Type Severity Reaction Status Date / Time chlordiazepoxide HCl Allergy Unknown Verified 04/30/17 13:40 [From Librium] codeine Allergy Unknown Verified 06/03/19 14:47 Penicillins Allergy Shortness Verified 04/30/17 13:40 of Breath tramadol HCl [From Ultram] Allergy Unknown Verified 04/30/17 13:40 ED Review of Systems ROS: Stated complaint: CYST Other details as noted in HPI Comment: All other systems reviewed and negative ED Past Medical Hx - Past Medical History Previous Medical History?: Yes Hx Psychiatric Treatment: Yes (panic attacks, PTSD) Additional medical history: hydronitis - Surgical History Past Surgical History?: Yes Additional Surgical History: hydronitis, wisdom tooth removed, pilonidal cyst removed - Social History Smoking Status: Current Every Day Smoker Substance Use Type: None - Medications Home Medications: Home Medications Medication Instructions Recorded Confirmed Last Taken Type Clindamycin [Clindamycin CAP] 300 mg PO Q8H #30 cap 04/23/19 Unknown Rx Fluconazole [Diflucan TAB] 100 mg PO QDAY #2 tablet 04/23/19 Unknown Rx Naproxen [Naprosyn] 500 mg PO BID PRN #20 tablet 04/23/19 Unknown Rx HYDROcodone/APAP 5-325 [Kincaid 1 each PO Q6HR PRN #12 tablet 05/13/19 Unknown Rx 5/325] Sulfamethoxazole/Trimethoprim 2 each PO BID #28 tablet 05/13/19 Unknown Rx [Bactrim DS TAB] Clindamycin [Clindamycin CAP] 300 mg PO Q8H #30 cap 06/03/19 Unknown Rx Fluconazole [Diflucan TAB] 100 mg PO QDAY #1 tablet 06/03/19 Unknown Rx HYDROcodone/APAP 5-325 [Kincaid 1 each PO Q6HR PRN #12 tablet 06/03/19 Unknown Rx 5/325] Chlorhexidine Gluconate [Hibiclens] 10 ml TP BID #240 liquid 07/04/19 Unknown Rx Fluconazole [Diflucan] 150 mg PO ONCE #2 tablet 07/04/19 Unknown Rx Ketorolac [Toradol] 10 mg PO Q6H PRN #15 tablet 07/04/19 Unknown Rx Sulfamethoxazole/Trimethoprim 1 each PO BID #20 tablet 07/04/19 Unknown Rx [Bactrim Ds] Ketorolac [Toradol] 10 mg PO Q8HR PRN #10 tablet 01/25/20 Unknown Rx Sulfamethoxazole/Trimethoprim 2 each PO BID 10 Days #40 tablet 01/25/20 Unknown Rx [Bactrim DS TAB] ED Physical Exam - General Limitations: No Limitations General appearance: alert, in no apparent distress - Head Head exam: Present: atraumatic, normocephalic - Eye Eye exam: Present: normal appearance - ENT ENT exam: Present: mucous membranes moist - Neurological Exam Neurological exam: Present: alert, oriented X3 - Psychiatric Psychiatric exam: Present: normal affect, normal mood - Skin Skin exam: Present: warm, dry, other (healed prior scars present to the superior portion of the gluteal cleft, there is small area of erythema present to the right side of the gluteal cleft with ttp, there is no drainage, very small amount of edema, no fluctuance, no necrosis, 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 She states that she sits frequently while she is working and works 12-hour shifts. She states that she has had pilonidal cyst before and had them removed as an outpatient approximately 3 times. She denies any fever, nausea, vomiting, diarrhea, drainage. She has a past medical history of vaginitis and pilonidal cyst. She has an allergy to Librium, codeine, penicillin, tramadol. she states she has an appointment with her surgeon on January 28 to be evaluated. Vitals are normal. Patient is afebrile no tachycardia. on exam: healed prior scars present to the superior portion of the gluteal cleft, there is small area of erythema present to the right side of the gluteal cleft with ttp, there is no drainage, very small amount of edema, no fluctuance, no necrosis, street sweeper operator: Marquise EMT. Appears to have very small area of cellulitis, there is no drainable abscess at this time. Patient will be placed on antibiotics and advised to be seen by her surgeon. Patient given prescription for Bactrim and Toradol. advised pt to Please use medication as prescribed. Use warm compresses 3 times a day. Do sitz baths. Follow-up with your surgeon. Return to the emergency room for any new or worsening symptoms. - Differential Diagnosis Cellulitis, abscess, pilonidal cyst Critical care attestation.: If time is entered above; I have spent that time in minutes in the direct care of this critically ill patient, excluding procedure time. ED Disposition Clinical Impression: Cellulitis Qualifiers: Site of cellulitis: buttock Qualified Code(s): L03.317 - Cellulitis of buttock Disposition: - TO HOME OR SELFCARE Is pt being admited?: No Does the pt Need Aspirin: No Condition: Stable Instructions: Cellulitis (ED), Sitz Bath (GEN) Additional Instructions: Please use medication as prescribed. Use warm compresses 3 times a day. Do sitz baths. Follow-up with your surgeon. Return to the emergency room for any new or worsening symptoms. Prescriptions: Sulfamethoxazole/Trimethoprim [Bactrim DS TAB] 2 each PO BID 10 Days #40 tablet Ketorolac [Toradol] 10 mg PO Q8HR PRN #10 tablet PRN Reason: Pain Referrals: your, surgeon [Other] - 2-3 Days Time of Disposition: 01:25 Print Language: ALBANIAN
== END 2020-01-25 01:37 | disposition home or self-care (01) ==
LOC: ED 23:32
DX: L03.317 Cellulitis of buttock (principal); F17.200 Nicotine dependence, unspecified, uncomplicated; Z88.0 Allergy status to penicillin; Z88.6 Allergy status to analgesic agent; Z88.8 Allergy status to other drugs, medicaments and biological substances; Z79.899 Other long term (current) drug therapy; Z98.890 Other specified postprocedural states
CPT/HCPCS: 99282